=== PATIENT | female | born 1985 | race Caucasian/White ===

== ENCOUNTER 2016-09-28 17:37 | Emergency (ER) | payer OTHER ==
[2016-09-28 17:47] VITALS: TEMP 98.7; BMI 29.1
--- NOTE | 2016-09-28 17:51 | PDOC ---
[id number] No Limitations - History of Present Illness Initial Comments: 09/28/16 18:07 The patient is a 31 year old female with a significant past medical history of asthma, who presents to the ED with chest pain 30 minutes prior to arrival. Patient states she ate soup after the chest pain but then started experiencing dizziness, nausea, and her skin became pale. She states she was also experiencing mild pain in her chest when trying to take a deep breath. Patient denies fever, chills. Patient denies dysuria, frequency, hematuria. Patient states she is currently on control. Cardiac risk factors: negative for smoking, family hx cardiac, hyperlipidemia, hx of HTN/DM <Scott Alarcon - Last Filed: 09/28/16 18:07> <Antonieta Treadwell - Last Filed: 10/03/16 10:30> - General Chief Complaint: Chest Pain Stated Complaint: CHEST PAIN Time Seen by Provider: 09/28/16 17:50 Past History <Scott Alarcon - Last Filed: 09/28/16 18:07> - Past Medical History Asthma: Yes - Psycho/Social/Smoking Cessation Hx Suicidal Ideation: No Smoking History: Never smoked Information on smoking cessation initiated: No Hx Alcohol Use: No Drug/Substance Use Hx: No Substance Use Type: None <Antonieta Treadwell - Last Filed: 10/03/16 10:30> - Past Medical History Allergies/Adverse Reactions: Allergies Allergy/AdvReac Type Severity Reaction Status Date / Time No Known Allergies Allergy Verified 09/28/16 17:46 Home Medications: Ambulatory Orders Amoxicillin - [Amoxicillin 500mg Capsule -] 500 mg PO TID 09/28/16 Review of Systems - Review of Systems Able to Perform ROS?: Yes Comments:: 09/28/16 18:08 GENERAL/CONSTITUTIONAL: No fever or chills. No weakness. HEAD, EYES, EARS, NOSE AND THROAT: No change in vision. No ear pain or discharge. No sore throat. CARDIOVASCULAR: + chest pain. + difficulty breathing. RESPIRATORY: No cough, wheezing, or hemoptysis. GASTROINTESTINAL: + nausea. No vomiting, diarrhea or constipation. GENITOURINARY: No dysuria, frequency, or change in urination. MUSCULOSKELETAL: No joint or muscle swelling or pain. No neck or back pain. SKIN: No rash NEUROLOGIC: No headache, vertigo, loss of consciousness, or change in strength/ sensation. ENDOCRINE: No increased thirst. No abnormal weight change. HEMATOLOGIC/LYMPHATIC: No anemia, easy bleeding, or history of blood clots. ALLERGIC/IMMUNOLOGIC: No hives or skin allergy. <Scott Alarcon - Last Filed: 09/28/16 18:07> *Physical Exam - Vital Signs Last Vital Signs Temp Pulse Resp BP Pulse Ox 98.7 F 100 H 18 147/66 100 09/28/16 17:44 09/28/16 17:44 09/28/16 17:44 09/28/16 17:44 09/28/16 17:44 - Physical Exam Comments: 09/28/16 18:08 GENERAL: Awake, alert, and fully oriented, in no acute distress HEAD: No signs of trauma EYES: PERRLA, EOMI, sclera anicteric, conjunctiva clear ENT: Auricles normal inspection, hearing grossly normal, nares patent, oropharynx clear without exudates. Moist mucosa NECK: Normal ROM, supple, no lymphadenopathy, JVD, or masses LUNGS: Breath sounds equal, clear to auscultation bilaterally. No wheezes, and no crackles HEART: Tachycardic, normal S1 and S2, no murmurs, rubs or gallops ABDOMEN: Soft, nontender, normoactive bowel sounds. No guarding, no rebound. No masses EXTREMITIES: Normal range of motion, no edema. No clubbing or cyanosis. No cords, erythema, or tenderness NEUROLOGICAL: Cranial nerves II through XII grossly intact. Normal speech, normal gait SKIN: Warm, Dry, normal turgor, no rashes or lesions noted. <Scott Alarcon - Last Filed: 09/28/16 18:07> - Vital Signs Last Vital Signs Temp Pulse Resp BP Pulse Ox 98.7 F 100 H 18 147/66 100 09/28/16 17:44 09/28/16 17:44 09/28/16 17:44 09/28/16 17:44 09/28/16 17:44 <Antonieta Treadwell - Last Filed: 10/03/16 10:30> Heart Score/ECG Review - ECG Impressions Comment:: EKG 17:42- NSR 96 bpm, incomplete RBBB <Antonieta Treadwell - Last Filed: 10/03/16 10:30> ED Treatment Course - LABORATORY CBC & Chemistry Diagram: 09/28/16 18:15 09/28/16 18:15 <Antonieta Treadwell - Last Filed: 10/03/16 10:30> Medical Decision Making - Medical Decision Making 09/28/16 19:[address] Solomon- f/u CTA chest, reassess. <Antonieta Treadwell - Last Filed: 10/03/16 10:30> *DC/Admit/Observation/Transfer - Attestations Scribe Attestion: 09/28/16 18:08 Documentation prepared by Scott Alarcon, acting as medical technologist blood bank for Antonieta Treadwell MD, . <Scott Alarcon - Last Filed: 09/28/16 18:07> <Antonieta Treadwell - Last Filed: 10/03/16 10:30> Diagnosis at time of Disposition: Shortness of breath - Discharge Dispostion Disposition: HOME Condition at time of disposition: Good - Referrals Referrals: Kerwin Roy MD [Primary Care Provider] - - Patient Instructions Printed Discharge Instructions: DI for Shortness of Breath Additional Instructions: At this time, there are no findings on your evaluation that would explain your symptoms. Please follow up with your PMD within the next 48 hours for reevaluation and if there is any change otherwise in your symptoms, please return immediately to the ED. This would include any further difficulty breathing or if you have any chest pain or cough, particularly with blood.
[2016-09-28 18:25] LABS: URINE APPEARANCE CLEAR; URINE BILIRUBIN NEGATIVE (NEGATIVE); URINE BLOOD NEGATIVE (NEGATIVE); URINE COLOR YELLOW; URINE GLUCOSE (UA) NEGATIVE (NEGATIVE); URINE KETONE TRACE (NEGATIVE); URINE LEUK ESTERASE NEGATIVE (NEGATIVE); URINE NITRITE NEGATIVE (NEGATIVE); URINE PROTEIN NEGATIVE (NEGATIVE); URINE UROBILINOGEN 2.0 E.U/dl E.U./dl (0.2-1.0)
[2016-09-28 18:26] LABS: BASOPHIL 0.2 % (0-2.0); MCH 30.2 pg (25.7-33.7); MCHC 33.6 g/dl (32.0-36.0); MEAN CELL VOLUME 89.9 fl (80-96); MEAN PLT VOLUME 9.3 fl (7.5-11.1); NEUTROPHILS 86.1 % (42.8-82.8); PLATELET COUNT 214 K/MM3 (134-434); RDW 12.7 % (11.6-15.6); WHITE BLOOD COUNT 13.9 K/mm3 (4.0-10.0)
[2016-09-28 18:40] LABS: INR 1.12 (0.82-1.09); PROTHROMBIN TIME (PATIENT) 12.4 SEC (9.98-11.88)
[2016-09-28 18:48] LABS: ALBUMIN 3.4 g/dl (3.4-5.0); ANION GAP 7 (8-16); BILIRUBIN,TOTAL 0.4 mg/dL (0.2-1.0); CALCIUM 8.4 mg/dL (8.5-10.1); CO2 30 mmol/L (21-32); CREATININE 0.7 mg/dL (0.55-1.02); GLUCOSE,RANDOM 78 mg/dL (74-106); SGOT/AST 15 U/L (15-37); SGPT/ALT 29 U/L (12-78); TOT PROT 6.4 g/dl (6.4-8.2)
[2016-09-28 18:51] LABS: ALK PHOS 38 U/L (45-117); TROPONIN I < 0.02 ng/ml (0.00-0.05)
--- NOTE | 2016-09-28 20:40 | PDOC ---
*Physical Exam - Vital Signs Last Vital Signs Temp Pulse Resp BP Pulse Ox 98.7 F 100 H 18 147/66 100 09/28/16 17:44 09/28/16 17:44 09/28/16 17:44 09/28/16 17:44 09/28/16 17:44 ED Treatment Course - LABORATORY CBC & Chemistry Diagram: 09/28/16 18:15 09/28/16 18:15 - ADDITIONAL ORDERS Additional order review: Laboratory Results 09/28/16 09/28/16 09/28/16 18:15 18:15 17:59 INR 1.12 Sodium 141 Potassium 3.9 Chloride 104 Carbon Dioxide 30 Anion Gap 7 L BUN 11 Creatinine 0.7 Creat Clearance w eGFR > 60 Random Glucose 78 Calcium 8.4 L Total Bilirubin 0.4 AST 15 ALT 29 Alkaline Phosphatase 38 L Creatine Kinase 160 Creatine Kinase Index 1.0 CK-MB (CK-2) 1.533 Troponin I < 0.02 Total Protein 6.4 Albumin 3.4 Urine Color Urine Appearance Urine pH Ur Specific [place] Urine Protein Urine Glucose (UA) Urine Ketones Urine Blood Urine Nitrite Urine Bilirubin Urine Urobilinogen Ur Leukocyte Esterase Urine HCG, Qual Negative 09/28/16 17:57 INR Sodium Potassium Chloride Carbon Dioxide Anion Gap BUN Creatinine Creat Clearance w eGFR Random Glucose Calcium Total Bilirubin AST ALT Alkaline Phosphatase Creatine Kinase Creatine Kinase Index CK-MB (CK-2) Troponin I Total Protein Albumin Urine Color Yellow Urine Appearance Clear Urine pH 5.0 Ur Specific [place] 1.030 Urine Protein Negative Urine Glucose (UA) Negative Urine Ketones Trace H Urine Blood Negative Urine Nitrite Negative Urine Bilirubin Negative Urine Urobilinogen 2.0 e.u/dl H Ur Leukocyte Esterase Negative Urine HCG, Qual 09/28/16 18:15 RBC 4.63 MCV 89.9 MCHC 33.6 RDW 12.7 MPV 9.3 Neutrophils % 86.1 H Lymphocytes % 8.1 Monocytes % 4.6 Eosinophils % 1.0 Basophils % 0.2 Medical Decision Making - Medical Decision Making 09/28/16 20:37 Pt received on sign out, comfortable and with no symptoms currently. She has a negative evaluation. She is encouraged to follow up with the PMD within the next 24 hours for reevaluation and if there is any change to return to the ED. *DC/Admit/Observation/Transfer Diagnosis at time of Disposition: Shortness of breath - Discharge Dispostion Disposition: HOME Condition at time of disposition: Good Admit: No Decision to Admit order Date/Time: 09/28/16 20:39 - Patient Instructions Additional Instructions: At this time, there are no findings on your evaluation that would explain your symptoms. Please follow up with your PMD within the next 48 hours for reevaluation and if there is any change otherwise in your symptoms, please return immediately to the ED. This would include any further difficulty breathing or if you have any chest pain or cough, particularly with blood.
[2016-09-28 21:19] VITALS: BP 106/60; PULSE 72
--- NOTE | 2016-10-01 17:18 | EKG ---
Test Reason : Blood Pressure : / mmHG Vent. Rate : 096 BPM Atrial Rate : 096 BPM P-R Int : 140 ms QRS Dur : 096 ms QT Int : 334 ms P-R-T Axes : 071 088 047 degrees QTc Int : 421 ms NORMAL SINUS RHYTHM POSSIBLE LEFT ATRIAL ENLARGEMENT INCOMPLETE RIGHT BUNDLE BRANCH BLOCK BORDERLINE ECG WHEN COMPARED WITH ECG OF 18-JUN-2013 19:35, NO SIGNIFICANT CHANGE WAS FOUND Confirmed by TORI SPENCE MD ([id number]) on 10/01/2016 5:18:41 PM Referred By: Confirmed By:TORI SPENCE MD
== END 2016-09-28 21:19 | disposition home or self-care (01) ==
LOC: JER 17:37
DX: R06.02 Shortness of breath (principal)
CPT/HCPCS: 36415; 71275-TC; 80053; 81003; 82550; 82553; 84484; 84703; 85025; 85610; 93005; 93010; 99284-25

== ENCOUNTER 2019-03-08 17:37 | Emergency (ER) | payer OTHER ==
--- NOTE | 2019-03-08 18:03 | PDOC ---
Rapid Medical Evaluation Time Seen by Provider: 03/08/19 18:00 Medical Evaluation: Allergies Allergy/AdvReac Type Severity Reaction Status Date / Time No Known Allergies Allergy Verified 09/28/16 17:46 03/08/19 18:00 This patient had a brief in-person evaluation in triage cc: , 25 week, EDC 06/20/2019 with pain to right lower abdomen x 2 weeks intermittently Reports movement, denies bleeding or dysuria. HPI: NAD even and unlabored breathing non tender right lower abdomen orders: patient will proceed to L & D Stable for transfer 03/08/19 18:02 Discharge Disposition - Diagnosis Abdominal cramping - Referrals - Patient Instructions - Post Discharge Activity
[2019-03-08 18:06] VITALS: BP 96/53; PULSE 78; TEMP 98.5; BMI 28.3
== END 2019-03-08 19:50 | disposition home or self-care (01) ==
LOC: JER 17:37
DX: O26.892 Other specified pregnancy related conditions, second trimester (principal); R10.31 Right lower quadrant pain; Z3A.25 25 weeks gestation of pregnancy
CPT/HCPCS: 99281-25

== ENCOUNTER 2019-06-21 18:00 | Inpatient (IN) | payer OTHER ==
[2019-06-21 18:30] VITALS: BMI 31.2
[2019-06-21 20:34] LABS: BASO % 0.2 % (0-2.0); EOS % 0.7 % (0-4.5); HEMATOCRIT 41.3 % (32.4-45.2); HEMOGLOBIN 13.6 GM/dL (10.7-15.3); LYMPH % 22.6 % (8-40); MCH 31.3 pg (25.7-33.7); MEAN CELL VOLUME 94.9 fl (80-96); MEAN PLT VOLUME 10.1 fl (7.5-11.1); MONO % 6.8 % (3.8-10.2); NEUT % 69.7 % (42.8-82.8); PLATELET COUNT 178 K/MM3 (134-434); RBC 4.35 M/mm3 (3.60-5.2); RDW 13.6 % (11.6-15.6); WHITE BLOOD COUNT 12.1 K/mm3 (4.0-10.0)
[2019-06-21] MEDS ORDERED: OXYTOCIN 30 UNITS in 0.9% NS 30 UNIT/500 ML INFUS.BAG IVPB ONE (20:34)
[2019-06-21] MEDS ORDERED: ELECTROLYTE-148 SOLN 1,000 ML IV SCH ×2 (20:45→23:45)
[2019-06-21 20:53] LABS: BLOOD UREA NITROGEN 14.7 mg/dL (7-18); CALCIUM 8.9 mg/dL (8.5-10.1); CREATININE 0.5 mg/dL (0.55-1.3); POTASSIUM 4.1 mmol/L (3.5-5.1)
[2019-06-21 21:00] LABS: INR 0.87 (0.83-1.09); PROTHROMBIN TIME (PATIENT) 10.3 SEC (9.7-13.0)
[2019-06-21] MEDS ORDERED: OXYTOCIN 30 UNITS in 0.9% NS 30 UNIT/500 ML INFUS.BAG IVPB SCH (21:00)
[2019-06-21] MEDS ORDERED: AMPICILLIN SODIUM 2 GM VIAL IVPB ONE (21:30)
[2019-06-21] MEDS ORDERED: AMPICILLIN SODIUM 2 GM VIAL ONE (21:45)
--- NOTE | 2019-06-21 23:09 | HP ---
Past Medical History - Primary Care Physician PCP:: Sylvia Puentes - Admission Chief Complaint: 33yo P1 @ 40.1 wks with +FM, no VB, no LOF. for postterm augmentation of labor, favorable cervix History of Present Illness: 1.Asthma - mild - PRN meds 2. Heart murmur - EKG/Echo wnl 3. Scoliosis - mild, lumbar - declines epidural 4. Flu and TDap vaccinations given 5. GBS pos for Antibiotics in labor 6. no h/o HSV History Source: Patient Limitations to Obtaining History: No Limitations - Past Medical History Pulmonary: Yes: Asthma (mild, meds PRN) ...: 2 ...Para: 1 ( x 1, 2009, 7.3lb) ...Term: 1 ...LMP: 09/15/18 ... Weeks Gestation by Dates: 39.4 ...EDC by Dates: 06/24/19 ...EDC by Sono: 06/20/19 Musculoskeletal: Yes: Other (scoliosis) - Past Surgical History Past Surgical History: Yes: None Hx Myomectomy: No Hx Transabdominal Cerclage: No - Smoking History Smoking history: Never smoked Have you smoked in the past 12 months: No - Alcohol/Substance Use Hx Alcohol Use: No History of Substance Use: reports: None - Social History Do you think of yourself as: Straight/Heterosexual ADL: Independent History of Recent Travel: No Home Medications - Allergies Allergies/Adverse Reactions: Allergies Allergy/AdvReac Type Severity Reaction Status Date / Time No Known Allergies Allergy Verified 06/21/19 18:20 - Home Medications Home Medications: Ambulatory Orders 19 Tablet 1 tab PO DAILY 06/21/19 Review of Systems - Review of Systems Constitutional: reports: No Symptoms Eyes: reports: No Symptoms HENT: reports: No Symptoms Neck: reports: No Symptoms Cardiovascular: reports: No Symptoms Respiratory: reports: No Symptoms Gastrointestinal: reports: No Symptoms Genitourinary: reports: No Symptoms Breasts: reports: No Symptoms Reported Musculoskeletal: reports: No Symptoms Integumentary: reports: No Symptoms Neurological: reports: No Symptoms Endocrine: reports: No Symptoms Hematology/Lymphatic: reports: No Symptoms Psychiatric: reports: No Symptoms Pain Intensity: 0 Physical Exam - Maternity Vital Signs: Vital Signs Temperature 98.6 F 06/21/19 22:00 Pulse Rate 83 06/21/19 22:00 Respiratory Rate 20 06/21/19 22:00 Blood Pressure 95/50 L 06/21/19 22:00 O2 Sat by Pulse Oximetry (%) Constitutional: Yes: Well Nourished, No Distress, Calm Eyes: Yes: WNL, Conjunctiva Clear, EOM Intact HENT: Yes: WNL, Atraumatic, Normocephalic Neck: Yes: WNL, Supple, Trachea Midline Cardiovascular: Yes: WNL, Regular Rate and Rhythm Lungs: Clear to auscultation Breast(s): Yes: WNL - Abdominal Exam/OB Fundal Height: 40 (EFW - 8lb, Today US- 3699gm) Number of Fetuses: Single Presentation: Vertex Contractions: No Monitor Mode: External Heart Rate Location: Midline Category: I Accelerations: Uniform Decelerations: None - Vaginal Exam/OB Vaginal Bleediing: No Dilatation (cm): 4 Effacement (%): 75 Amniotic Membrane Status: Intact Presentation: Vertex/Position Station: -3 - Physical Exam Musculoskeletal: Yes: WNL Extremities: Yes: WNL Edema: No Integumentary: Yes: WNL ...Motor Strength: WNL Psychiatric: Yes: WNL, Alert, Oriented - Labs Lab Results: CBC, BMP 06/21/19 19:15 06/21/19 18:29 Assessment/Plan 33yo P1 @ 40.1wks postterm with favorable cervix Admit to L&D NPO, Labs, IVF Augment with Pitocin, process of augmentation explained, all questions answered Ampicillin for GBS prophylaxis Will AROM once 2nd Ampicillin dose is given Pain medication as needed Adequate pelvis MF status reassuring
[2019-06-21] MEDS ORDERED: PROMETHAZINE HCL 25 MG/1 ML VIAL IVPUSH ONE (23:36)
[2019-06-21] MEDS ORDERED: BUTORPHANOL TARTRATE 1 MG/ML VIAL IVPB ONE (23:36)
[2019-06-22] MEDS: AMPICILLIN SODIUM 1 GM VIAL IVPB SCH ×3 (01:45→09:30)
[2019-06-22] MEDS ORDERED: AMPICILLIN SODIUM 1 GM VIAL ONE (01:59)
[2019-06-22] MEDS ORDERED: BUPIVACAINE HCL/PF 2.5 MG/ML - 30 ML VIAL IJ ONE (02:11)
[2019-06-22] MEDS ORDERED: OXYTOCIN 20 UNITS in 0.9% NS 20 UNIT/1,000 ML INFUS.BAG IV ONE (02:30)
[2019-06-22] MEDS ORDERED: BENZOCAINE 20% 57 GM BOTTLE TP PRN (05:00)
[2019-06-22] MEDS ORDERED: METHYLERGONOVINE MALEATE 0.2 MG/1 ML AMP IM PRN (05:00)
[2019-06-22] MEDS ORDERED: WITCH HAZEL 50% (TUCKS) 40 PAD/JAR PAD TP PRN (05:00)
[2019-06-22] MEDS ORDERED: BISACODYL 10 MG SUPP.RECT RC PRN (05:00)
[2019-06-22] MEDS ORDERED: BENZOCAINE 28 GM HEMORRHOIDAL OINTMENT TP PRN (05:00)
--- NOTE | 2019-06-22 05:07 | PN ---
Delivery - Delivery Vaginal Delivery: No Problems Type of Anesthesia: Spinal Episiotomy/Laceration: None EBL (cc): 300 Delivery, Single - Stages of Labor Date 1st Stage Initiatied: 06/22/19 Time 1st Stage Initiated: 00:00 Date 2nd Stage Initiated: 06/22/19 Time 2nd Stage Initiated: 04:10 Date of Delivery: 06/22/19 Time of Delivery: 04:30 Date Placenta Delivered: 06/22/19 Time Placenta Delivered: 04:35 Placenta: Yes: Spontaneous - Condition of Engineering Surveyor/Curriculum Manager Present: No Gender: Male Weight: 8 lb 12 oz Position: Left, OA - 1 Minute Total Score: 9 5 Minutes Total Score: 9 - Feeding Plan Initial Plan: Exclusive throughout hospitalization Benefits of Exclusively reinforced: Yes Remarks - Remarks Remarks: Uncomplicated vaginal delivery of head and shoulders over intact perineum viable male, APGARs 9/9 Placenta delivered spontaneously, intact
[2019-06-22] MEDS ORDERED: OXYTOCIN 20 UNITS in 0.9% NS 20 UNIT/1,000 ML INFUS.BAG IV SCH (05:15)
[2019-06-22] MEDS: PRENATAL VITAMINS W/ FOLIC ACID TABLET (FP) PO SCH (10:32)
[2019-06-22] MEDS: FERROUS SO4 325 MG TABLET (FP) PO SCH ×2 (10:32→21:29)
[2019-06-22] MEDS: ACETAMINOPHEN 325 MG TABLET (FP) PO PRN ×3 (10:33→21:29)
[2019-06-22] MEDS: IBUPROFEN 600 MG TABLET (FP) PO PRN ×3 (10:33→21:29)
--- NOTE | 2019-06-23 08:20 | PN ---
Post Progress Note - Subjective Subjective: Patient without acute complaints. Reports tolerating oral intake without nausea or vomiting. Ambulating without dizziness. Denies fevers or chills. Pain well controlled with oral pain medication. Pumping/breast feeding without issue. Passing flatus, no BM. Post Day: 1 Type of Delivery: Vital Signs: Vital Signs Temperature 98.0 F 06/23/19 06:00 Pulse Rate 77 06/23/19 06:00 Respiratory Rate 18 06/23/19 06:00 Blood Pressure 97/58 L 06/23/19 06:00 O2 Sat by Pulse Oximetry (%) 99 06/22/19 05:45 Breast Exam: Yes: Soft Uterus: Yes: Fundus Firm, Fundus below umbilicus, Non-tender Abdomen/GI: Yes: Abdomen soft, Tolerating PO Lochia: Yes: Rubra Lochia, amount: Small Extremities: Yes: Calves non-tender Perineum: Yes: Intact Activity: Ambulating - Labs Labs: CBC WBC 12.1 K/mm3 (4.0-10.0) H 06/21/19 19:15 RBC 4.35 M/mm3 (3.60-5.2) 06/21/19 19:15 Hgb 13.6 GM/dL (10.7-15.3) 06/21/19 19:15 Hct 41.3 % (32.4-45.2) 06/21/19 19:15 MCV 94.9 fl (80-96) 06/21/19 19:15 MCH 31.3 pg (25.7-33.7) 06/21/19 19:15 MCHC 33.0 g/dl (32.0-36.0) 06/21/19 19:15 RDW 13.6 % (11.6-15.6) 06/21/19 19:15 Plt Count 178 K/MM3 (134-434) 06/21/19 19:15 MPV 10.1 fl (7.5-11.1) 06/21/19 19:15 Absolute Neuts (auto) 8.4 K/mm3 (1.5-8.0) H 06/21/19 19:15 Neutrophils % 69.7 % (42.8-82.8) 06/21/19 19:15 Lymphocytes % 22.6 % (8-40) D 06/21/19 19:15 Monocytes % 6.8 % (3.8-10.2) 06/21/19 19:15 Eosinophils % 0.7 % (0-4.5) 06/21/19 19:15 Basophils % 0.2 % (0-2.0) 06/21/19 19:15 Nucleated RBC % 0 % (0-0) 06/21/19 19:15 Assessment/Plan 33yo s/p , doing well stable, afebrile. Asymptomatic for anemia. care instructions reviewed. Continue routine care. Ambulation encouraged Discharge instruction reviewed.
--- NOTE | 2019-06-23 08:22 | DS ---
Physical Exam-[facility]OLESALER Vital Signs: Vital Signs Temperature 98.0 F 06/23/19 06:00 Pulse Rate 77 06/23/19 06:00 Respiratory Rate 18 06/23/19 06:00 Blood Pressure 97/58 L 06/23/19 06:00 O2 Sat by Pulse Oximetry (%) 99 06/22/19 05:45 Constitutional: Yes: Well Nourished, No Distress, Calm Eyes: Yes: WNL, Conjunctiva Clear, EOM Intact HENT: Yes: WNL, Atraumatic, Normocephalic Neck: Yes: WNL, Supple, Trachea Midline Cardiovascular: Yes: WNL, Regular Rate and Rhythm Respiratory: Yes: WNL, Regular, CTA Bilaterally Gastrointestinal: Yes: WNL, Normal Bowel Sounds, Soft ...Rectal Exam: Yes: Deferred Renal/: Yes: WNL Vaginal Exam: Yes: Normal ....Post : Yes: Uterus firm, Uterus non-tender, Slight lochia rubra Breast(s): Yes: WNL Musculoskeletal: Yes: WNL Extremities: Yes: WNL Edema: Yes Edema: LLE: Trace, RLE: Trace Integumentary: Yes: WNL Neurological: Yes: WNL, Alert, Oriented ...Motor Strength: WNL Psychiatric: Yes: WNL, Alert, Oriented Labs: CBC, BMP 06/21/19 19:15 06/21/19 18:29 Delivery - Delivery Vaginal Delivery: No Problems, Spontaneous Type of Anesthesia: Spinal Episiotomy/Laceration: None EBL (cc): 300 Delivery, Single - Stages of Labor Date 1st Stage Initiatied: 06/22/19 Time 1st Stage Initiated: 00:00 Date 2nd Stage Initiated: 06/22/19 Time 2nd Stage Initiated: 04:10 Date of Delivery: 06/22/19 Time of Delivery: 04:30 Time Placenta Delivered: 04:35 Placenta: Yes: Spontaneous - Condition of Organizational Development Consultant/Anode Rebuilder Present: No Infant Gender: Male Weight: 3.969 kg Position: Left, OA Total Hours ROM (Hrs/Mins): 4 hrs. 35mins. - 1 Minute Total Score: 9 5 Minutes Total Score: 9 - [place] Feeding Plan Initial Plan: Exclusive throughout hospitalization Benefits of Exclusively reinforced: Yes Discharge Summary Problems reviewed: Yes Reason For Visit: LABOR INDUCTION Labor indx post term Procedures: Principal: REYES Hospital Course: Normal recovery Condition: Good - Instructions Diet, Activity, Other Instructions: Physical activity Resume your normal everyday activity as tolerated no heavy lifting or exercise until seen by your surgeon. You may walk unlimited katarina of and climb stairs. You may resume driving the car when you feel safe and comfortable behind the wheel. No sexual activity as instructed. Wound care If you have a bandage, leave it on, and keep dry for 48-72 hours. After that time discard the outer bandage. If they are tapes on the skin under the out of bandage leave them in place. They will peel off in the next 7 to 10 days. Do Not Peel them off. You may shower the day after surgery. If there are tapes present on the skin, you may shower over them. Diet There are no dietary restrictions. Eat healthy, high-fiber foods. Drink 6 to 8 glasses of liquid each day. This will assist in keeping your bowels are regular. Pain management You may take Tylenol or acetaminophen or Ibuprofen (for example, Motrin, Advil etc.) from my pain prescription medication is ordered should be taken as prescribed for moderate to severe pain. Call MD for any of the following: Severe pain not relieved by medication Fever of 101 or higher Excessive bleeding or drainage on dressing Inability to urinate Referrals: Jose Francisco Jimenes MD [Staff Physician] - Disposition: HOME - Home Medications Comprehensive Discharge Medication List: Ambulatory Orders 19 Tablet 1 tab PO DAILY 06/21/19 Prescription Drug Monitoring Program (I-STOP) results: I-STOP not reviewed
[2019-06-23] MEDS: FERROUS SO4 325 MG TABLET (FP) PO SCH ×2 (09:57→22:05)
[2019-06-23] MEDS: PRENATAL VITAMINS W/ FOLIC ACID TABLET (FP) PO SCH (09:57)
[2019-06-23] MEDS: IBUPROFEN 600 MG TABLET (FP) PO PRN ×2 (09:59→20:36)
[2019-06-23] MEDS: ACETAMINOPHEN 325 MG TABLET (FP) PO PRN ×2 (10:00→20:37)
[2019-06-23 11:05] LABS: BASO % 0.2 % (0-2.0); EOS % 1.1 % (0-4.5); HEMATOCRIT 35.4 % (32.4-45.2); HEMOGLOBIN 12.2 GM/dL (10.7-15.3); MCH 32.3 pg (25.7-33.7); MCHC 34.4 g/dl (32.0-36.0); MEAN CELL VOLUME 93.9 fl (80-96); MEAN PLT VOLUME 9.8 fl (7.5-11.1); MONO % 6.1 % (3.8-10.2); NEUT % 66.6 % (42.8-82.8); PLATELET COUNT 165 K/MM3 (134-434); RBC 3.77 M/mm3 (3.60-5.2); RDW 13.4 % (11.6-15.6); WHITE BLOOD COUNT 11.9 K/mm3 (4.0-10.0)
[2019-06-23 21:29] VITALS: TEMP 98.2
[2019-06-23] MEDS ORDERED: SENNOSIDES/DOCUSATE COMBO (SENNA PLUS) TABLET (UD) PO PRN (22:00)
--- NOTE | 2019-06-24 04:36 | PN ---
Post Progress Note - Subjective Subjective: Patient without acute complaints. Reports tolerating oral intake without nausea or vomiting. Ambulating without dizziness. Denies fevers or chills. Pain well controlled with oral pain medication. without difficulty. Passing flatus. Post Day: 2 Type of Delivery: Vital Signs: Vital Signs Temperature 98.2 F 06/23/19 21:29 Pulse Rate 75 06/23/19 21:29 Respiratory Rate 20 06/23/19 21:29 Blood Pressure 103/62 06/23/19 21:29 O2 Sat by Pulse Oximetry (%) 99 06/22/19 05:45 Breast Exam: Yes: Engorged Uterus: Yes: Fundus Firm, Fundus below umbilicus Abdomen/GI: Yes: Abdomen soft, Passing flatus, Tolerating PO. No: Abdominal Distention, Tender Lochia: Yes: Rubra Lochia, amount: Small Extremities: Yes: Calves non-tender, Edema (trace) Activity: Ambulating - Labs Labs: CBC WBC 11.9 K/mm3 (4.0-10.0) H 06/23/19 10:29 RBC 3.77 M/mm3 (3.60-5.2) 06/23/19 10:29 Hgb 12.2 GM/dL (10.7-15.3) 06/23/19 10:29 Hct 35.4 % (32.4-45.2) 06/23/19 10:29 MCV 93.9 fl (80-96) 06/23/19 10:29 MCH 32.3 pg (25.7-33.7) 06/23/19 10:29 MCHC 34.4 g/dl (32.0-36.0) 06/23/19 10:29 RDW 13.4 % (11.6-15.6) 06/23/19 10:29 Plt Count 165 K/MM3 (134-434) 06/23/19 10:29 MPV 9.8 fl (7.5-11.1) 06/23/19 10:29 Absolute Neuts (auto) 7.9 K/mm3 (1.5-8.0) 06/23/19 10:29 Neutrophils % 66.6 % (42.8-82.8) 06/23/19 10:29 Lymphocytes % 26.0 % (8-40) 06/23/19 10:29 Monocytes % 6.1 % (3.8-10.2) 06/23/19 10:29 Eosinophils % 1.1 % (0-4.5) 06/23/19 10:29 Basophils % 0.2 % (0-2.0) 06/23/19 10:29 Nucleated RBC % 0 % (0-0) 06/23/19 10:29 Assessment/Plan 33 yo PPD # 2 s/p , afebrile, vital signs stable, doing well 1. Patient stable for discharge home today. 2. Patient encouraged to contact MD for: - Severe pain not controlled by oral pain medication - Fevers or chills - Nausea or vomiting, intolerance of oral intake 3. Patient to follow up in office in 4-6 weeks for visit
[2019-06-24 09:16] VITALS: BP 92/57; PULSE 71
[2019-06-24] MEDS: FERROUS SO4 325 MG TABLET (FP) PO SCH (09:46)
[2019-06-24] MEDS: PRENATAL VITAMINS W/ FOLIC ACID TABLET (FP) PO SCH (09:46)
== END 2019-06-24 11:45 | disposition home or self-care (01) | DRG 560 ==
LOC: JLDR 18:00 → J3W 06-22 08:00
PROVIDERS: ADMIT Obstetrics & Gynecology; ATTEND Obstetrics & Gynecology
PROC: 10E0XZZ Delivery of Products of Conception, External Approach (ICD-10-PCS; principal; 2019-06-22)
DX: O48.0 Post-term pregnancy (principal); Z3A.40 40 weeks gestation of pregnancy; O98.82 Other maternal infectious and parasitic diseases complicating childbirth; B95.1 Streptococcus, group B, as the cause of diseases classified elsewhere; Z37.0 Single live birth
CPT/HCPCS: 36415; 36600; 59409; 80048; 82803; 85025; 85610; 85730; 86593; 86850; 86900; 86901; 87389